=== PATIENT | female | born 1955 | race Caucasian/White ===

== ENCOUNTER 2017-03-30 15:40 | Emergency (ER) | payer OTHER ==
[2013-08-06 12:04] VITALS: BMI 30.4
[~2017-03-30 15:40] MED LIST: ALLEGRA-D1 TAB.SR1 PO; DEPAKOTE PO; FLUTICASONE PRO16 GM NS; HYDROCODONE-APA1 TAB PO; LIPITOR10 MG PO; LYRICA300 MG PO; MORPHINE SULFAT15 M4 PO; OXYBUTYNIN CHLOR5 MG PO; SEREVENT D50 MCG/DIS INH; SOMA350 MG PO; STOOL SOFTENER PO; VALIUM10 MG PO
== END 2017-03-30 19:16 | disposition home or self-care (01) ==
LOC: D.ER 15:40
DX: S60.212A Contusion of left wrist, initial encounter (principal); W22.8XXA Striking against or struck by other objects, initial encounter; Y93.89 Activity, other specified; Y92.019 Unspecified place in single-family (private) house as the place of occurrence of the external cause; F17.200 Nicotine dependence, unspecified, uncomplicated

== ENCOUNTER 2018-10-09 10:09 | Emergency (ER) | payer MEDICARE, OTHER ==
[~2018-10-09] VITALS: Ht 172.7 cm; Wt 90.9 kg
[2018-10-09 10:29] VITALS: Ht 172.7 cm; Wt 90.9 kg
[2018-10-09] MEDS ORDERED: MEDICAL MARIJUANA (10:32)
[2018-10-09] MEDS ORDERED: KEFLEX500 MG PO (11:32)
[2018-10-09] MEDS ORDERED: CLEOCIN HCL300 MG PO (11:32)
[2018-10-09 12:19] VITALS: BP 114/68
== END 2018-10-09 12:20 | disposition home or self-care (01) ==
LOC: D.ER 10:09
DX: S61.411A Laceration without foreign body of right hand, initial encounter (principal); W19.XXXA Unspecified fall, initial encounter; B99.8 Other infectious disease; E78.5 Hyperlipidemia, unspecified; J44.9 Chronic obstructive pulmonary disease, unspecified

== ENCOUNTER 2018-12-04 09:28 | Emergency (ER) | payer MEDICARE, OTHER ==
[~2018-12-04] VITALS: Ht 172.7 cm; Wt 90.9 kg
[~2018-12-04 09:28] MED LIST changes: +CLEOCIN HCL300 MG PO; +KEFLEX500 MG PO; +MEDICAL MARIJUANA
[2018-12-04 09:44] VITALS: Ht 172.7 cm; Wt 90.9 kg
[2018-12-04 10:32] LABS: APPEARANCE SL CLDY (CLEAR); BACTERIA MANY /hpf (NONE SEEN); BILIRUBIN NEGATIVE (NEGATIVE); COLOR YELLOW (YELLOW); EPITHELIAL CELLS 0-5 /hpf (0-5); GLUCOSE NEGATIVE (NEGATIVE); KETONE NEGATIVE (NEGATIVE); MUCUS <1+ /lpf (NONE SEEN); NITRITE POSITIVE (NEGATIVE); PROTEIN TRACE mg/dL (NEGATIVE); RED CELLS - URINE 0-5 /hpf (0-5); UROBILINOGEN NORMAL (NORMAL)
[2018-12-04 13:23] LABS: ANION GAP 11.4 mmol/L (8-16); BILIRUBIN - TOTAL 0.68 mg/dL (0.2-1.3); CALCIUM 9.6 mg/dL (8.5-10.1); CARBON DIOXIDE 30.1 mmol/L (21.0-32.0); CREATININE - SERUM 1.2 mg/dL (0.6-1.3); POTASSIUM - SERUM 4.5 mmol/L (3.5-5.1); PROTEIN - SERUM 7.9 g/dL (6.4-8.2)
[2018-12-04 13:35] LABS: BASOPHILS 0.2 % (0-2); EOSINOPHILS 0 % (0-7); HEMATOCRIT 42.6 % (36.0-48.0); HEMOGLOBIN 15.3 g/dL (12-16); IMMATURE GRANULOCYTES 0.2 % (0-5); LYMPHOCYTES 17.7 % (15-50); MCH 31.4 pg (26.0-34.0); MCHC 35.9 g/dL (31.0-37.0); MCV 87.3 fL (80.0-100.0); MEAN PLATELET VOLUME 10.2 fL (7.4-10.4); MONOCYTES 8.6 % (2-11); NEUTROPHILS 73.3 % (40-80); RBC 4.88 10x6/uL (4.00-5.40); WBC 8.4 10x3/uL (4.8-10.8)
[2018-12-04 13:39] LABS: PLATELET COUNT 95 10x3/uL (130-400)
[2018-12-04 14:00] LABS: PLATELET ESTIMATE NORMAL
[2018-12-04 14:01] LABS: PLATELET MORPHOLOGY PLT CLUMPS PRESENT
[2018-12-04] MEDS ORDERED: CIPRO500 MG PO (14:27)
[2018-12-04 19:42] VITALS: BP 120/56
== END 2018-12-04 15:13 | disposition home or self-care (01) ==
LOC: D.ER 09:28
PROVIDERS: Emergency Medicine
DX: N10 Acute pyelonephritis (principal)

== ENCOUNTER 2018-12-06 11:02 | Emergency (ER) | payer MEDICARE, OTHER ==
[~2018-12-06] VITALS: Ht 172.7 cm; Wt 90.9 kg
[~2018-12-06 11:02] MED LIST changes: +CIPRO500 MG PO
[2018-12-06 11:14] VITALS: BP 132/72; Ht 172.7 cm; Wt 90.9 kg
== END 2018-12-06 11:25 | disposition left against medical advice (07) ==
LOC: D.ER 11:02
DX: N10 Acute pyelonephritis (principal)

== ENCOUNTER 2018-12-10 16:33 | Emergency (ER) | payer MEDICARE, OTHER ==
[~2018-12-10] VITALS: Ht 172.7 cm; Wt 90.9 kg
[2018-12-10 16:38] VITALS: Ht 172.7 cm; Wt 90.9 kg
[2018-12-10 17:41] LABS: BASOPHILS 0.2 % (0-2); EOSINOPHILS 0.1 % (0-7); HEMATOCRIT 41.1 % (36.0-48.0); HEMOGLOBIN 15.1 g/dL (12-16); IMMATURE GRANULOCYTES 0.7 % (0-5); LYMPHOCYTES 23.6 % (15-50); MCH 31.9 pg (26.0-34.0); MCHC 36.7 g/dL (31.0-37.0); MCV 86.9 fL (80.0-100.0); MEAN PLATELET VOLUME 11.6 fL (7.4-10.4); MONOCYTES 8.7 % (2-11); NEUTROPHILS 66.7 % (40-80); RBC 4.73 10x6/uL (4.00-5.40); RDW 14.3 % (11.5-14.5); WBC 9.2 10x3/uL (4.8-10.8)
[2018-12-10 17:43] LABS: PLATELET COUNT 141 10x3/uL (130-400)
[2018-12-10 17:51] LABS: APPEARANCE CLEAR (CLEAR); BILIRUBIN NEGATIVE (NEGATIVE); COLOR YELLOW (YELLOW); GLUCOSE NEGATIVE (NEGATIVE); KETONE NEGATIVE (NEGATIVE); NITRITE NEGATIVE (NEGATIVE); PROTEIN NEGATIVE (NEGATIVE); SPECIFIC GRAVITY 1.015 (1.005-1.020); UROBILINOGEN NORMAL (NORMAL)
[2018-12-10 18:11] LABS: ALBUMIN 3.5 g/dL (3.4-5.0); ALKALINE PHOSPHATASE 250 U/L (46-116); ALT (SGPT) 29 U/L (10-68); AMYLASE - SERUM 27 U/L (25-115); BILIRUBIN - TOTAL 0.82 mg/dL (0.2-1.3); CALC OSMOLALITY 283 mosm/kg (275-300); CALCIUM 9.3 mg/dL (8.5-10.1); CARBON DIOXIDE 32.3 mmol/L (21.0-32.0); CHLORIDE - SERUM 102 mmol/L (98-107); CREATININE - SERUM 0.7 mg/dL (0.6-1.3); GLUCOSE 99 mg/dL (74-106); LIPASE 90 U/L (73-393); PROTEIN - SERUM 8.2 g/dL (6.4-8.2); SODIUM 143 mmol/L (136-145); UREA NITROGEN 11 mg/dL (7-18); eGFR NON AFRICAN AMERICAN 90 mL/min (90-120)
[2018-12-10 18:12] LABS: TROPONIN-I < 0.017 ng/mL (0.000-0.060)
[2018-12-10] MEDS ORDERED: ULTRAM50 MG PO (20:37)
[2018-12-10] MEDS ORDERED: NAPROSYN500 MG PO (20:37)
[2018-12-10] MEDS ORDERED: DIFLUCAN150 MG PO (20:37)
[2018-12-10 21:20] VITALS: BP 114/63
== END 2018-12-10 21:09 | disposition home or self-care (01) ==
LOC: D.ER 16:33
PROVIDERS: Family Medicine
DX: R10.9 Unspecified abdominal pain (principal); R30.0 Dysuria; B37.3 Candidiasis of vulva and vagina; R35.0 Frequency of micturition; J44.9 Chronic obstructive pulmonary disease, unspecified; F17.200 Nicotine dependence, unspecified, uncomplicated

== ENCOUNTER 2019-01-23 14:48 | Emergency (ER) | payer MEDICARE, OTHER ==
[~2019-01-23] VITALS: Ht 172.7 cm; Wt 90.9 kg
[~2019-01-23 14:48] MED LIST changes: +DIFLUCAN150 MG PO; +NAPROSYN500 MG PO; +ULTRAM50 MG PO
[2019-01-23 14:53] VITALS: Ht 172.7 cm; Wt 90.9 kg
[2019-01-23 16:03] LABS: BASOPHILS 0.4 % (0-2); EOSINOPHILS 0.1 % (0-7); HEMATOCRIT 40.8 % (36.0-48.0); HEMOGLOBIN 12.7 g/dL (12-16); IMMATURE GRANULOCYTES 0.6 % (0-5); LYMPHOCYTES 23.3 % (15-50); MCH 30.9 pg (26.0-34.0); MCHC 31.1 g/dL (31.0-37.0); MCV 99.3 fL (80.0-100.0); MEAN PLATELET VOLUME 10.3 fL (7.4-10.4); MONOCYTES 7.9 % (2-11); NEUTROPHILS 67.7 % (40-80); RBC 4.11 10x6/uL (4.00-5.40); RDW 14.4 % (11.5-14.5); WBC 6.8 10x3/uL (4.8-10.8)
[2019-01-23 16:04] LABS: PLATELET COUNT 182 10x3/uL (130-400)
[2019-01-23 16:16] LABS: ALBUMIN 2.8 g/dL (3.4-5.0); ANION GAP 12.1 mmol/L (8-16); BILIRUBIN - TOTAL 0.31 mg/dL (0.2-1.3); POTASSIUM - SERUM 4.1 mmol/L (3.5-5.1)
[2019-01-23 16:47] LABS: APPEARANCE CLEAR (CLEAR); COLOR STRAW (YELLOW); SPECIFIC GRAVITY 1.005 (1.005-1.020)
[2019-01-23 16:48] LABS: BILIRUBIN NEGATIVE (NEGATIVE); GLUCOSE NEGATIVE (NEGATIVE); KETONE NEGATIVE (NEGATIVE); NITRITE NEGATIVE (NEGATIVE); PROTEIN NEGATIVE (NEGATIVE); UROBILINOGEN NORMAL (NORMAL)
[2019-01-23 18:55] VITALS: BP 92/45
== END 2019-01-23 18:55 | disposition other institution (70) ==
LOC: D.ER 14:48
PROVIDERS: Family Medicine
DX: M46.26 Osteomyelitis of vertebra, lumbar region (principal); G06.1 Intraspinal abscess and granuloma; M48.061 Spinal stenosis, lumbar region without neurogenic claudication

== ENCOUNTER → 2019-02-05 17:18 | Outpatient (CLI) | payer MEDICARE, OTHER ==
[2019-01-23 14:53] VITALS: BMI 30.4
[2019-02-05 20:27] LABS: EOSINOPHILS 0.2 % (0-7); HEMATOCRIT 43.3 % (36.0-48.0); HEMOGLOBIN 14.3 g/dL (12-16); IMMATURE GRANULOCYTES 0.2 % (0-5); LYMPHOCYTES 51.7 % (15-50); MCH 31.4 pg (26.0-34.0); MEAN PLATELET VOLUME 11.7 fL (7.4-10.4); MONOCYTES 5.3 % (2-11); NEUTROPHILS 41.6 % (40-80); PLATELET COUNT 207 10x3/uL (130-400); RBC 4.56 10x6/uL (4.00-5.40); RDW 15.8 % (11.5-14.5)
[2019-02-05 20:33] LABS: CREATININE - SERUM 0.9 mg/dL (0.6-1.3)
== END | disposition home or self-care (01) ==
LOC: D.LABREF 17:18
PROVIDERS: ATTEND Internal Medicine
DX: M86.9 Osteomyelitis, unspecified (principal); G06.1 Intraspinal abscess and granuloma